=== PATIENT | female | born 1995 | race Caucasian/White ===

== ENCOUNTER 2023-01-11 17:49 | Emergency (ER) | payer OTHER, SELFPAY ==
--- NOTE | ~2023-01-11 | XR_ITS ---
EXAMINATION: XR foot LT min 3V DATE: 01/11/2023 18:22 INDICATION: Left foot injury. TECHNIQUE: 4 views of left foot were obtained. COMPARISON: None. FINDINGS: There is an intra-articular fracture of medial and plantar base of fifth proximal phalanx i n near-anatomic alignment involving 40% of the articular surface. 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 There is an enthesophyte at plantar aspect of calcaneal tuberosity. IMPRESSION: 1. Intra-articular fracture of medial and plantar base of fifth proximal phalanx. Reviewed, dictated and finalized at location E. IMPRESSION: 1. Intra-articular fracture of medial and plantar base of fifth proximal phalan x.
[2023-01-11 18:14] VITALS: BP 114/74; PULSE 68; RESP 16; TEMP 37.1; O2SAT 100
[2023-01-11 18:17] VITALS: BP 114/74; PULSE 16; RESP 16; TEMP 37.1; O2SAT 100
--- NOTE | 2023-01-11 18:29 | ED.LOWEXIN ---
HPI - Extremity Injury (Lower) General Chief Complaint: Extremity Injury, Lower Stated Complaint: left foot injury Time Seen by Provider: 01/11/23 18:20 Source: patient Mode of arrival: ambulatory Limitations: no limitations History of Present Illness HPI Narrative: Alisha is a 28-year-old female patient presenting to the clinic today with complaints of left 5th toe injury. She reports she was running this morning as she heard her 2-year-old fall and another room and jam/sprained her left 5th toe. She reports she sprained her toe on the couch. Bruising and swelling noted over the base of the left 5th toe Related Data Home Medications Medication Instructions Recorded Confirmed fluvoxamine 100 mg tablet mg 01/11/23 omeprazole 20 mg capsule,delayed 20 mg PO DAILY 01/11/23 01/11/23 release Allergies Allergy/AdvReac Type Severity Reaction Status Date / Time No Known Allergies Allergy Unknown Verified 01/27/14 11:08 Review of Systems Review of Systems: Pertinent positives per HPI. Patient denies any fever, chills, rash, headache, visual changes, dizziness, cough, runny nose, sore throat, shortness of breath, chest pain, palpitations, nausea, vomiting, diarrhea, constipation, abdominal pain, or any urinary issues. PMFSH Comments At the time of my signature, I reviewed and agree with the nursing past medical, surgical, social, and family history. There is no relevant family history pertinent to the patient complaint. Exam Narrative: General: Well-developed, well nourished, in no apparent distress Head: Normocephalic, atraumatic. Cardio: Regular rate and rhythm, s1 and s2 normal, no murmur appreciated. Resp: Clear to auscultation bilaterally, no rhonchi, rales, wheezing or rubs. Musculoskeletal: No deformity, bruising and swelling over the base of the 5th toe extending into the midfoot,tender to palpation over the base of the left 5th toe with decreased flexion and extension due to pain, grossly normal range of motion of other toes and foot, muscle strength strong and equal, peripheral pulse strong, no edema, no cyanosis, sitting in a wheelchair Course Course Emergency Course: Portions of this record may have been created with voice recognition software. Level of Care: Express Care Visit Vital Signs Vital signs: Vital Signs Temperature 37.1 C 01/11/23 18:14 Pulse Rate 68 01/11/23 18:14 Respiratory Rate 16 01/11/23 18:14 Blood Pressure 114/74 01/11/23 18:14 Pulse Oximetry 100 01/11/23 18:14 Oxygen Delivery Room Air 01/11/23 18:14 Temperature 37.1 C 01/11/23 18:17 Pulse Rate 16 L 01/11/23 18:17 Respiratory Rate 16 01/11/23 18:17 Blood Pressure 114/74 01/11/23 18:17 Pulse Oximetry 100 01/11/23 18:17 Oxygen Delivery Room Air 01/11/23 18:17 Vital signs reviewed MDM - Extremity Injury (Lower) MDM Narrative Medical decision making narrative: At the time of visit patient is resting comfortably on the exam table. X-ray of the left foot was obtained and shows a proximal left 5th toe fracture. Postop shoe was given and 5th toe was zander-taped to the 4th toe. Supportive measures were discussed with the patient she voiced understanding discharge instructions and agrees to treatment plan. Differential Diagnosis Differential diagnosis: Likely fracture of toe and other (Toe sprain) Imaging Data Radiologist's impression: ITS Impressions Foot X-Ray 01/11/23 18:28 IMPRESSION: 1. Intra-articular fracture of medial and plantar base of fifth proximal phalanx. Discharge Plan Discharge Clinical Impression: Closed fracture of toe Patient Disposition: Home, Self-Care Condition: Stable Instructions: Antibiotic Form, Toe Fracture (ED) Additional Instructions: X-ray shows a intra-articular fracture of the medial and the plantar base of the 5th proximal phalanx Rest, ice, elevate, and wear postop shoe as directed Zander-taped the 5t
== END 2023-01-11 18:37 | disposition home or self-care (01) ==
PROVIDERS: Emergency Provider Nurse Practitioner Family
DX: S92.512A Displaced fracture of proximal phalanx of left lesser toe(s), initial encounter for closed fracture (principal); Z79.899 Other long term (current) drug therapy; W19.XXXA Unspecified fall, initial encounter
CPT/HCPCS: 73630; 99214; G0463